=== PATIENT | male | born 1970 | race Caucasian/White ===

== ENCOUNTER 2018-01-18 15:55 | Inpatient (IN) | payer OTHER ==
[~2018-01-18] VITALS: Ht 177.8 cm; Wt 136.5 kg
[2018-01-18] MEDS ORDERED: LABE100 PO (16:11)
[2018-01-18] MEDS ORDERED: INSLAN SQ (16:11)
[2018-01-18] MEDS ORDERED: METF500T6 PO (16:11)
[2018-01-18] MEDS ORDERED: INSU100V SQ (16:11)
[2018-01-18] MEDS ORDERED: SODIUM CHLORIDE 0.9% 1,000 ML IV ONE (17:00)
[2018-01-18 17:09] LABS: BASOPHILS % (AUTO) 0.9 % (0.0-2.0); EOSINOPHILS % (AUTO) 1.2 % (1.0-6.0); HEMATOCRIT 36.9 % (41-53); HEMOGLOBIN 12.7 g/dL (13.5-17.5); LYMPHOCYTES # (AUTO) 1.1 K/uL (1.0-4.8); LYMPHOCYTES % (AUTO) 11.8 % (22.0-44.0); MEAN CORPUSCULAR HEMOGLOBIN 30.2 pg (26.0-34.0); MEAN CORPUSCULAR HGB CONC 34.3 G/dL (31.0-37.0); MEAN CORPUSCULAR VOLUME 88 fL (80-100); MONOCYTES # (AUTO) 0.5 K/uL (0.1-1.0); MONOCYTES % (AUTO) 4.8 % (2.0-9.0); NEUTROPHILS # (AUTO) 7.6 K/uL (1.8-7.7); NEUTROPHILS % (AUTO) 81.3 % (40.0-70.0); PLATELET COUNT (AUTO) 227 K/uL (150-450); RED BLOOD CELL COUNT(AUTO) 4.19 MIL/uL (4.50-5.90); RED CELL DISTRIBUTION WIDTH 13.4 % (11.5-14.5)
[2018-01-18 17:22] LABS: ANION GAP 7 mmol/L (8-16); CALCIUM, TOTAL 7.9 mg/dL (8.8-10.5); CARBON DIOXIDE 26 mmol/L (22-29); CHLORIDE 110 mmol/L (98-107); CREATININE 1.14 mg/dL (0.60-1.30); GLOMERULAR FILTR. RATE CALC > 60 mL/min (>60); GLUCOSE,RANDOM 86 mg/dL (70-110); POTASSIUM 3.9 mmol/L (3.5-5.1); SODIUM SERUM 143 mmol/L (136-145); UREA NITROGEN, BLOOD 28 mg/dL (7-18)
[2018-01-18 17:26] LABS: ALANINE AMINOTRANSFERASE 48 U/L (12-78); ALBUMIN 2.5 g/dL (3.4-5.0); ALKALINE PHOSPHATASE 56 U/L (46-116); ASPARTATE AMINOTRANSFERASE 39 U/L (15-37); BILIRUBIN,TOTAL 0.4 mg/dL (0.1-1.0); LIPASE 150 U/L (73-393)
[2018-01-18 19:39] LABS: AMPHET/METH SCREEN,URINE NEGATIVE (NEGATIVE); BARBITURATE SCREEN, URINE NEGATIVE (NEGATIVE); BENZODIAZEPINES SCREEN,URINE NEGATIVE (NEGATIVE); CANNABINOID SCREEN,URINE NEGATIVE (NEGATIVE); COCAINE SCREEN,URINE NEGATIVE (NEGATIVE); METHADONE SCREEN, URINE NEGATIVE (NEGATIVE); OPIATE SCREEN,URINE NEGATIVE (NEGATIVE); PHENCYCLIDINE SCREEN,URINE NEGATIVE (NEGATIVE)
[2018-01-18] MEDS ORDERED: 0.9% SODIUM CHLORIDE 10 ML SYRINGE IVP PRN (20:15)
[2018-01-18] MEDS ORDERED: ACETAMINOPHEN 325 MG TABLET PO PRN (20:15)
[2018-01-18] MEDS ORDERED: ONDANSETRON HCL 4 MG/2 ML VIAL IVP PRN (20:15)
[2018-01-18 21:17] LABS: GLUCOSE,POINT OF CARE 134 MG/DL (70-110)
[2018-01-18 21:28] LABS: APPEARANCE,URINE CLEAR (CLEAR); BILIRUBIN,URINE NEGATIVE (NEGATIVE); GLUCOSE, URINE (UA) NEGATIVE (NEGATIVE); OCCULT BLOOD,URINE LARGE (NEGATIVE); PH,URINE 5.5 (5.0-8.0); PROTEIN,URINE SEE CONFIRM (NEGATIVE)
[2018-01-18 21:29] LABS: KETONES,URINE 15 mg/dL (NEGATIVE); LEUKOCYTE ESTERASE ,URINE NEGATIVE (NEGATIVE); NITRATE,URINE NEGATIVE (NEGATIVE); UROBILINOGEN,URINE 0.2 mg/dL (<=1.0)
[2018-01-18 21:30] VITALS: BP 159/95
[2018-01-18] MEDS ORDERED: DEXTROSE 50%-WATER 25 GM/50 ML SYRINGE IVP PRN (21:30)
[2018-01-18 21:43] LABS: SULFOSALICYLIC ACID,URINE 4+ (Negative)
[2018-01-18 21:44] LABS: BACTERIA,URINE Rare /HPF (None Seen); WBC,URINE 0-2 /HPF (0-5)
[2018-01-18 21:46] LABS: COARSE GRANULAR CASTS,URINE 0-2 /LPF (None Seen); SQUAMOUS EPITHELIAL CELL,UR Rare /LPF (None Seen)
[2018-01-18] MEDS ORDERED: METOPROLOL TARTRATE 5 MG/5 ML VIAL IVP PRN (22:45)
[2018-01-18] MEDS ORDERED: PNEUMOCOCCAL VACCINE POLYVALENT 0.5 ML VIAL [PPSV23] IM ONE (23:30)
[2018-01-19 00:11] VITALS: BP 145/78
[2018-01-19 05:45] VITALS: BP 151/75
[2018-01-19] MEDS: INSULIN LISPRO 100 UNITS/ML SQ PRN ×4 (05:49→20:42)
[2018-01-19 07:26] VITALS: BP 145/81
[2018-01-19] MEDS: LABETALOL HCL 100 MG TABLET PO SCH (08:21)
[2018-01-19] MEDS: MetFORMIN HCL 500 MG TABLET PO SCH ×2 (08:22→17:49)
[2018-01-19] MEDS: INSULIN GLARGINE,HUM.REC.ANLOG 100 UNITS/ML SQ SCH (08:28)
[2018-01-19 10:13] LABS: GLUCOMETER DEV NAME(LOC) 5S 1M; GLUCOSE,POINT OF CARE 232 MG/DL (70-110)
[2018-01-19 11:46] VITALS: BP 156/91
[2018-01-19 15:48] VITALS: BP 134/90
[2018-01-19] MEDS ORDERED: HYDROCODONE/ACETAMINOPHEN 5-325 MG TABLET PO PRN (16:15)
[2018-01-19 19:24] VITALS: BP 149/85
[2018-01-19 20:27] LABS: GLUCOMETER DEV NAME(LOC) 5S 2Q; GLUCOSE,POINT OF CARE 273 MG/DL (70-110)
[2018-01-20 00:03] VITALS: BP 138/71
[2018-01-20 01:42] LABS: GLUCOMETER DEV NAME(LOC) 5N 2S; GLUCOSE,POINT OF CARE 328 MG/DL (70-110)
[2018-01-20] MEDS ORDERED: CloNIDine HCL 0.1 MG TABLET PO PRN (04:30)
[2018-01-20] MEDS: INSULIN LISPRO 100 UNITS/ML SQ PRN ×2 (05:52→11:43)
[2018-01-20 05:54] VITALS: BP 151/92
[2018-01-20 07:47] VITALS: BP 150/88
[2018-01-20] MEDS: MetFORMIN HCL 500 MG TABLET PO SCH (08:50)
[2018-01-20] MEDS: LABETALOL HCL 100 MG TABLET PO SCH (08:50)
[2018-01-20] MEDS: INSULIN GLARGINE,HUM.REC.ANLOG 100 UNITS/ML SQ SCH (08:57)
[2018-01-20 11:46] VITALS: BP 156/90
[2018-01-20 13:23] LABS: GLUCOMETER DEV NAME(LOC) 5N 2S; GLUCOSE,POINT OF CARE 231 MG/DL (70-110)
[2018-01-20 13:23] LABS: GLUCOMETER DEV NAME(LOC) 5S 1M; GLUCOSE,POINT OF CARE 334 MG/DL (70-110)
[2018-01-22 02:07] LABS: GLUCOMETER DEV NAME(LOC) 5S 2Q; GLUCOSE,POINT OF CARE 337 MG/DL (70-110)
== END 2018-01-20 13:00 | disposition home or self-care (01) | DRG 194 ==
LOC: EMS 15:58 → 5S 20:08
PROVIDERS: ADMIT Internal Medicine; ATTEND Internal Medicine
DX: I11.0 Hypertensive heart disease with heart failure (principal); E11.65 Type 2 diabetes mellitus with hyperglycemia; R55 Syncope and collapse; I50.9 Heart failure, unspecified; E66.01 Morbid (severe) obesity due to excess calories; F45.8 Other somatoform disorders; I49.9 Cardiac arrhythmia, unspecified; G47.9 Sleep disorder, unspecified; G40.909 Epilepsy, unspecified, not intractable, without status epilepticus; Z79.4 Long term (current) use of insulin; Z91.19 Patient's noncompliance with other medical treatment and regimen; Z72.89 Other problems related to lifestyle; Z68.41 Body mass index [BMI] 40.0-44.9, adult; Z28.21 Immunization not carried out because of patient refusal
CPT/HCPCS: 70450; 82948; 83036; 83605; 93005; 93306; 93880; 96360; 96361; 99285; G0480; J1815; J7030